=== PATIENT | male | born 1980 | race Caucasian/White ===

== ENCOUNTER → 2024-10-03 09:40 | Outpatient (CLI) | payer OTHER, SELFPAY ==
--- NOTE | 2024-10-03 | DI.NM.S_ITS ---
PROCEDURE: NM BONE 3 PHASE RADIOPHARMACEUTICAL: 22 mCi Tc-99m MDP IV. INDICATIONS: MEDIAL TIBIAL STRESS SYNDROME/PERSISTENT PAIN TECHNIQUE: Multiple bone scintigrams were obtained after intravenous injection of Tc-99m MDP, including flow, blood pool, and delayed images centered to the region of interest. COMPARISON: None. FINDINGS: Normal and symmetric activity within the bilateral calfs and ankles on all phases. IMPRESSION: Normal and symmetric activity within the bilateral calfs and ankles on all phases. Dictated by: Jf Nation M.D. on 10/03/2024 at 15:05 Approved by: Jf Nation M.D. on 10/03/2024 at 15:09
== END ==
PROVIDERS: Referring Provider Podiatrist; Visit Provider Podiatrist
DX: S86.89 Other injury of other muscles and tendons at lower leg level (principal)
CPT/HCPCS: 78315; A9503